=== PATIENT | male | born 1970 | race Caucasian/White ===

== ENCOUNTER 2024-10-27 18:53 | Emergency (ER) | payer OTHER, SELFPAY ==
[2024-10-27 18:59] VITALS: BP 115/72; PULSE 111; RESP 18; TEMP 37.2; O2SAT 98
[2024-10-27] MEDS: Amox. 875/Clav. 125, 2 TABS/BTL 1 TAB PO (19:47)
--- NOTE | 2024-10-27 21:42 | ED.GENADUL_ITS ---
Discharge Plan Disposition Patient Disposition: Home Discharge Details Clinical Impression: Laceration of lip Primary Care Provider: Unknown,Unknown ED Provider: Madelaine Beverly Home Meds and New Rx's Prescriptions: New amoxicillin-pot clavulanate 875-125 mg tablet 1 tab PO BID Qty: 4 0RF Discharge Instructions Instructions: Laceration Repair With Stitches ED Additional Instructions: stitches will dissolve on own (if still present in 5 days, should be removed) keep wound clean and dry take antibiotics for 3 days return with spreading redness, fever, worsening pain Discharge Data Discharge Date/Time-TO BE ENTERED AT DEPARTURE: 10/27/24 19:51 HPI General Date/Time Provider Initiated Documentation: 10/27/24 19:37 . HPI Narrative: 54-year-old male with inner lip laceration after slipping on soap and landing on his chin. No additional injuries, jaw pain, head injury, or loss of consciousness. No history of coagulopathy. Tetanus vaccination up to date. Related Data Home Medications ?Medication ?Instructions ?Recorded ?Confirmed amoxicillin 875 mg-potassium 1 tab PO BID #4 tabs 10/02 10/25 clavulanate 125 mg tablet Previous Rx's ?Medication ?Instructions ?Recorded amoxicillin 875 mg-potassium 1 tab PO BID #4 tabs 10/02 10/25 clavulanate 125 mg tablet Allergies Allergy/AdvReac Type Severity Reaction Status Date / Time No Known Allergies Allergy Verified 10/27/24 19:06 General Stated Complaint: Laceration BETO: 3 Exam Narrative Exam Narrative: General Appearance: Normal. Vital signs: Within normal limits. HEENT: Pupils equal, round, reactive to light and accommodation. Extraocular muscles intact. 1-inch vertical laceration on inner lip, not involving vermilion border. 0.5-inch superficial [id number] laceration on lower lip with scant bleeding. No dental trauma. Respiratory: Within normal limits. Skin: Warm and dry, no rash. Neurological: Normal. Course Vital Signs Vital signs: Vital Signs Temperature 37.2 C 10/27/24 18:59 Pulse 111 H 10/27/24 18:59 Respiratory Rate 18 10/27/24 18:59 Blood Pressure 115/72 10/27/24 18:59 Pulse Oximetry 98 10/27/24 18:59 Temperature 37.2 C 10/27/24 18:59 Temperature Source Oral 10/27/24 18:59 Pulse 111 H 10/27/24 18:59 Respiratory Rate 18 10/27/24 18:59 Blood Pressure 115/72 10/27/24 18:59 Blood Pressure Position Sitting 10/27/24 18:59 Pulse Oximetry 98 10/27/24 18:59 Oxygen Delivery Method Room Air 10/27/24 18:59 Oxygen Flow Rate 0 10/27/24 18:59 Pain Level 0 10/27/24 18:59 Medical Decision Making Procedure: Wound cleansed. Lidocaine with epinephrine 3 cm? instilled into wound sites. One 3-0 Vicryl suture placed in inner lip internally and chromic gut 5-0 placed on lower lip externally. Patient tolerated procedure well. Initial Assessment: 54-year-old male with inner lip laceration after slipping on soap and landing on chin. No additional injuries, jaw pain, head injury, or loss of consciousness. Tetanus up to date. ED Course: - Wound cleansed. - Lidocaine with epinephrine 3 cm? instilled into wound sites. - Three Vicryl 5-0 sutures placed internally on inner lip. - Chromic gut 5-0 sutures placed externally on lower lip. - Augmentin prescribed due to risk of intraoral pathogens such as Pasteurella. Final Assessment: Laceration to inner and lower lip treated with sutures and antibiotic prescribed. Clinical Impression: - Inner lip laceration - Lower lip laceration Disposition: - Discharge home, return precautions reviewed and understood. [facility] All Active Problems (Updated 10/27/24 @ 19:39 by VIMAL Li) Laceration of lip (Acute) Social History Smoking/Tobacco Use Status: Former Tobacco Use Smoking risk assessment performed?: Yes Alcohol Intake: former Substance use type: does not use
== END 2024-10-27 19:51 | disposition home or self-care (01) ==
PROVIDERS: Emergency Provider Physician Assistant
DX: S01.511A Laceration without foreign body of lip, initial encounter (principal); Z87.891 Personal history of nicotine dependence; W18.39XA Other fall on same level, initial encounter; Y93.89 Activity, other specified; Y92.148 Other place in prison as the place of occurrence of the external cause
CPT/HCPCS: 12011; 99283